=== PATIENT | male | born 1975 | race Caucasian/White ===

== ENCOUNTER 2017-10-26 18:01 | Observation (INO) | payer BC ==
[2017-10-26] MEDS ORDERED: ASPIRIN PO ONE (18:02)
[2017-10-26] MEDS ORDERED: ASPIRIN ONE (18:06)
[2017-10-26 18:14] VITALS: BMI 34.7
--- NOTE | 2017-10-26 18:18 | DR.GENAD ---
HPI - PCP Primary Care Physician: ERICKSON - HPI Comment HPI Comment: CHEST PAIN PRESSURE LIKE. MORE FREQUENT AND MORE INTENSE TODAY. - Complaint/Symptoms Chief Complaint Doctors Comments: LEFT SIDED CHEST PAIN RADIATING TO LEFT ARM SINCE LAST NIGHT/INTERMITTENT. Chief Complaint:: PT C/O LT SIDED CHEST PAIN THAT RADIATES TO LT SHOULDER AND DOWN LT ARM. PT STATES HIS PAIN STARTED LAST NIGHT AND HAS BEEN COMING AND GOING. - Nurses notes reviewed Nurses Notes Review: Yes - Source History Provided: Patient - Mode of Arrival Mode of Arrival: Ambulatory - Timing Onset of Chief Complaint: 10/25/17 Came on: Suddenly - Duration Duration: Intermittent Duration: Days - Severity Severity: Moderate PMH - PMH Past Medical History: Yes Past Medical History: Dyslipidemia, Hypertension Past Surgical History: Yes Surgical History: Abdominal Surgery, Ortho Surgery Past Surgical History Comment: BACK AND HERNIA REPAIR - Family History History of Family Medical Conditions: Yes Family Medical History: [place], Coronary Artery Disease, Heart Failure, Hypertension - Social History Does any household member use tobacco: No Alcohol Use: None Do you use any recreational Drugs:: No Lives With: Family Lives Where: Home - infectious screening In the last 2 months have you had wt loss of >10#?: NO Have you had fever, night sweats or hemotysis?: No Have you traveled outside the country in the last 6 months?: No Isolation: Standard ROS - Review of Systems Constitutional: No Symptoms Reported Eyes: No Symptoms Reported ENTM: No Symptoms Reported Respiratoy: No Symptoms Reported Cardiovascular: Chest Pain Gastrointestinal/Abdominal: No Symptoms Reported Genitourinary: No Symptoms Reported Neurological: No Symptoms Reported Musculoskeletal: No Symptoms Reported Integumentary: No Symptoms Reported Hematologic/Lymphatic: No Symptoms Reported Endocrine: No Symptoms Reported All Other Systems: Reviewed and Negative PE - Vital Signs Vitals: Temperature 98.0 F Pulse Rate [Right Radial] 74 Pulse Rate 70 Respiratory Rate 18 Blood Pressure [Right Arm] 166/87 Blood Pressure 162/83 O2 Sat by Pulse Oximetry 97 - General Limitations: No Limitations General Appearance: Alert - Head Head Exam: Normal Inspection - Eyes Eye exam: Normal Appearance - ENT ENT Exam: Normal External Ear Exam External Ear Exam: Normal External Inspection TM/Canal Exam: Bilateral Normal Nose Exam: Normal Nose Exam Mouth Exam: Normal Inspection Throat Exam: Normal Inspection - Neck Neck Exam: Normal Inspection - Chest Chest Inspection: Symmetric Chest Wall Rise - Respiratory Respiratory Exam: Normal Lung Sounds Bilat Respiratory Exam: Bilateral Clear to Auscultation - Cardiovascular Cardiovascular Exam: Regular Rate, Normal Rhythm, Normal Heart Sounds - Abdominal Exam Abdominal Exam: Normal Bowel Sounds, Soft. negative: Tenderness - Extremities Extremities Exam: Normal Inspection - Back Back Exam: Normal Inspection - Neurologic Neurological Exam: Alert, Oriented X3 - Psychiatric Psychiatric Exam: Normal Affect, Normal Mood - Skin Skin Exam: Normal Color MDM - Differential Diagnosis Differential Diagnosis: CHEST PAIN, HYPERTENSION Course - Treatment Treatment: SEE ORDERS. ASPRIN, NTG AND MORPHIN IN ED. - Consultation Consultation Comments: DISCUSS PATIENT WITH DR. SCHWAB. WILL ADMIT PATIENT. - Education/Counseling Education/Counseling: Patient, Family, Education Educated On: Treatment, Diagnosis ROR - Labs Reviewed Result Diagrams: 10/27/17 02:45 10/27/17 02:45 Laboratory: WBC 8.8 X10^3/uL (3.6-10.0) 10/26/17 18:13 RBC 5.41 X10^6/uL (4.7-6.0) 10/26/17 18:13 Hgb 14.6 g/dL (13.5-18.0) 10/26/17 18:13 Hct 43.1 % (42.0-54.0) 10/26/17 18:13 MCV 79.7 fL (80.0-100.0) L 10/26/17 18:13 MCH 27.0 pg (27.0-34.0) 10/26/17 18:13 MCHC 33.8 g/dL (33.0-35.0) 10/26/17 18:13 RDW 13.6 % (11.6-16.5) 10/26/17 18:13 Plt Count 199 X10^3/uL (150.0-450.0) 10/26/17 18:13 MPV 7.6 fL (7.4-11.0) 10/26/17 18:13 Neut % 63.8 % (42.0-75.0) 10/26/17 18:13 Lymph % 24.8 % (21.0-51.0) 10/26/17 18:13 Woodson % 6.9 % (0.0-13.0) 10/26/17 18:13 Eos % 3.8 % (0.9-2.9) H 10/26/17 18:13 Baso % 0.7 % (0.2-1.0) 10/26/17 18:13 Neut # 5.6 x10^3/uL (2.2-4.8) H 10/26/17 18:13 Lymph # 2.2 X10^3/uL (1.3-2.9) 10/26/17 18:13 Woodson # 0.6 x10^3/uL (0.3-0.8) 10/26/17 18:13 Eos # 0.3 x10^3/uL (0.0-0.2) H 10/26/17 18:13 Baso # 0.1 X10^3/uL (0.0-0.1) 10/26/17 18:13 Absolute Nucleated RBC 0.0 /100WBC 10/26/17 18:13 INR Target Range - 10/26/17 18:13 INR 0.97 (0.8-1.3) 10/26/17 18:13 PTT 29.7 SECONDS (22.9-36.5) 10/26/17 18:13 PTT Comment - 10/26/17 18:13 D-Dimer < 100 ng/mL (0-400) 10/26/17 18:13 Sodium 139 mmol/L (136-145) 10/26/17 18:13 Corrected Sodium 139 mmol/L (136-145) 10/26/17 18:13 Potassium 3.4 mmol/L (3.5-5.1) L 10/26/17 18:13 Chloride 103 mmol/L (98-107) 10/26/17 18:13 Carbon Dioxide 27.5 mmol/L (21-32) 10/26/17 18:13 BUN 15 mg/dL (7-18) 10/26/17 18:13 Creatinine 0.89 mg/dL (0.70-1.30) 10/26/17 18:13 Est GFR (MDRD) Af Amer > 60 (>60) 10/26/17 18:13 Est GFR (MDRD) Non-Af > 60 (>60) 10/26/17 18:13 Glucose 115 mg/dL (65-99) H 10/26/17 18:13 Calcium 8.4 mg/dL (8.5-10.1) L 10/26/17 18:13 Corrected Calcium TNP 10/26/17 18:13 Magnesium 2.2 mg/dL (1.7-2.9) 10/26/17 18:13 Total Bilirubin 0.30 mg/dL (0.2-1.0) 10/26/17 18:13 AST 28 Units/L (15-37) 10/26/17 18:13 ALT 41 Units/L (12-78) 10/26/17 18:13 Alkaline Phosphatase 79 Units/L (46-116) 10/26/17 18:13 Creatine Kinase 507 Units/L (39-308) H 10/26/17 18:13 CK-MB (CK-2) 8.2 ng/mL (0-4.0) H* 10/26/17 18:13 CK/CKMB % Calc 1.6 % (<4) 10/26/17 18:13 Troponin I < 0.02 ng/mL (0-1.5) 10/26/17 18:13 Total Protein 7.1 g/dL (6.4-8.2) 10/26/17 18:13 Albumin 4.2 g/dL (3.4-5.0) 10/26/17 18:13 Globulin 2.9 g/dL (2.5-4.5) 10/26/17 18:13 Albumin/Globulin Ratio 1.4 Ratio (1.1-2.1) 10/26/17 18:13 Amylase 33 Units/L (25-115) 10/26/17 18:13 Lipase 184 Units/L (73-393) 10/26/17 18:13 H. pylori IgG Antibody Negative (NEGATIVE) 10/26/17 18:16 - XRAY XRAY Findings: REPORT DISCUSS WITH PATIENT AND HIS . - EKG Rhythm: NSR (EKG NOTED.) - Diagnosis Discharge Problem: Chest pain Qualifiers: Chest pain type: unspecified Qualified Code(s): R07.9 - Chest pain, unspecified Hypertension Qualifiers: Hypertension type: unspecified Qualified Code(s): I10 - Essential (primary) hypertension - Discharge Plan Disposition: ADMITTED INPATIENT Condition: Stable - Follow ups/Referrals - Instructions
[2017-10-26] MEDS: NITROSTAT SL PRN ×3 (18:22→18:38)
[2017-10-26 18:28] LABS: BASOPHILS # (AUTO) 0.1 X10^3/uL (0.0-0.1); BASOPHILS % (AUTO) 0.7 % (0.2-1.0); EOSINOPHILS # (AUTO) 0.3 x10^3/uL (0.0-0.2); EOSINOPHILS % (AUTO) 3.8 % (0.9-2.9); HEMATOCRIT 43.1 % (42.0-54.0); HEMOGLOBIN 14.6 g/dL (13.5-18.0); LYMPHOCYTES # (AUTO) 2.2 X10^3/uL (1.3-2.9); LYMPHOCYTES % (AUTO) 24.8 % (21.0-51.0); MEAN CORPUSCULAR HGB CONC 33.8 g/dL (33.0-35.0); MEAN CORPUSCULAR VOLUME 79.7 fL (80.0-100.0); MEAN PLATELET VOLUME 7.6 fL (7.4-11.0); MONOCYTES # (AUTO) 0.6 x10^3/uL (0.3-0.8); MONOCYTES % (AUTO) 6.9 % (0.0-13.0); NEUTROPHILS # (AUTO) 5.6 x10^3/uL (2.2-4.8); NEUTROPHILS % (AUTO) 63.8 % (42.0-75.0); PLATELET COUNT 199 X10^3/uL (150.0-450.0); RED BLOOD COUNT 5.41 X10^6/uL (4.7-6.0); RED CELL DISTRIBUTION WIDTH 13.6 % (11.6-16.5); WHITE BLOOD COUNT 8.8 X10^3/uL (3.6-10.0)
[2017-10-26 18:41] LABS: AMYLASE 33 Units/L (25-115); LIPASE 184 Units/L (73-393)
[2017-10-26 18:42] LABS: BLOOD UREA NITROGEN 15 mg/dL (7-18); CALCIUM 8.4 mg/dL (8.5-10.1); CARBON DIOXIDE 27.5 mmol/L (21-32); CHLORIDE 103 mmol/L (98-107); COR NA(FOR HYPERGLY) 139 mmol/L (136-145); CREATININE 0.89 mg/dL (0.70-1.30); SODIUM 139 mmol/L (136-145); TROPONIN I < 0.02 ng/mL (0-1.5); eGFR BLACK RACES > 60 (>60); eGFR NON BLACK RACES > 60 (>60)
--- NOTE | 2017-10-26 18:46 | RAD ---
Examination: Portable AP chest History: Left side chest pain Findings: Normal appearance of heart, lungs and mediastinum and pleural spaces. Impression: Normal portable AP chest. Reported By:
[2017-10-26] MEDS ORDERED: ZOFRAN INJ 4 MG VIAL IVP ONE (18:59)
[2017-10-26] MEDS ORDERED: MORPHINE SULFATE INJ 4 MG IVP ONE (18:59)
[2017-10-26] MEDS ORDERED: ZOFRAN INJ 4 MG VIAL ONE (19:02)
[2017-10-26] MEDS ORDERED: MORPHINE SULFATE INJ 4 MG ONE (19:02)
[2017-10-26 19:05] LABS: ALANINE AMINOTRANSFERASE 41 Units/L (12-78); ALBUMIN 4.2 g/dL (3.4-5.0); ALKALINE PHOSPHATASE 79 Units/L (46-116); ASPARTATE AMINO TRANSFERASE 28 Units/L (15-37); CKMB % 1.6 % (<4); CREATINE KINASE 507 Units/L (39-308); MAGNESIUM 2.2 mg/dL (1.7-2.9); TOTAL PROTEIN 7.1 g/dL (6.4-8.2)
[2017-10-26 19:12] LABS: CREATINE KINASE MB 8.2 ng/mL (0-4.0)
[2017-10-26] MEDS ORDERED: K-LYTE EFFERVESCENT PO ONE (19:48)
[2017-10-26] MEDS ORDERED: MORPHINE SULFATE INJ 4 MG IVP PRN (20:38)
[2017-10-26] MEDS ORDERED: ATIVAN TAB 1 MG PO PRN (20:38)
[2017-10-26] MEDS ORDERED: ZOFRAN INJ 4 MG VIAL IVP PRN (20:38)
[2017-10-26] MEDS ORDERED: K-LYTE EFFERVESCENT ONE (20:45)
[2017-10-26 21:37] LABS: CKMB % 1.5 % (<4); CREATINE KINASE 453 Units/L (39-308); TROPONIN I < 0.02 ng/mL (0-1.5)
[2017-10-26 21:42] LABS: CREATINE KINASE MB 6.8 ng/mL (0-4.0)
[2017-10-26] MEDS ORDERED: NS 1000 ML 1,000 ML ONE (21:53)
[2017-10-26] MEDS: NS 1000 ML 1,000 ML IV SCH (21:56)
[2017-10-27 03:00] LABS: BASOPHILS # (AUTO) 0.1 X10^3/uL (0.0-0.1); BASOPHILS % (AUTO) 0.7 % (0.2-1.0); EOSINOPHILS # (AUTO) 0.3 x10^3/uL (0.0-0.2); EOSINOPHILS % (AUTO) 4.4 % (0.9-2.9); HEMATOCRIT 42.5 % (42.0-54.0); HEMOGLOBIN 14.6 g/dL (13.5-18.0); LYMPHOCYTES # (AUTO) 2.3 X10^3/uL (1.3-2.9); LYMPHOCYTES % (AUTO) 28.1 % (21.0-51.0); MEAN CORPUSCULAR HEMOGLOBIN 27.1 pg (27.0-34.0); MEAN CORPUSCULAR HGB CONC 34.4 g/dL (33.0-35.0); MEAN CORPUSCULAR VOLUME 78.9 fL (80.0-100.0); MEAN PLATELET VOLUME 7.6 fL (7.4-11.0); MONOCYTES # (AUTO) 0.8 x10^3/uL (0.3-0.8); MONOCYTES % (AUTO) 9.6 % (0.0-13.0); NEUTROPHILS # (AUTO) 4.6 x10^3/uL (2.2-4.8); NEUTROPHILS % (AUTO) 57.2 % (42.0-75.0); PLATELET COUNT 179 X10^3/uL (150.0-450.0); RED BLOOD COUNT 5.39 X10^6/uL (4.7-6.0); RED CELL DISTRIBUTION WIDTH 13.7 % (11.6-16.5)
[2017-10-27 03:16] LABS: ALANINE AMINOTRANSFERASE 40 Units/L (12-78); ALBUMIN 3.7 g/dL (3.4-5.0); ALKALINE PHOSPHATASE 68 Units/L (46-116); ASPARTATE AMINO TRANSFERASE 23 Units/L (15-37); BLOOD UREA NITROGEN 13 mg/dL (7-18); CARBON DIOXIDE 28.5 mmol/L (21-32); CHLORIDE 104 mmol/L (98-107); CHOL/HDL RATIO 5.9 (0.0-5.0); CHOLESTEROL 177 mg/dL (0-200); CREATININE 0.87 mg/dL (0.70-1.30); HDL CHOLESTEROL 30 mg/dL (40-60); MAGNESIUM 2.1 mg/dL (1.7-2.9); SODIUM 141 mmol/L (136-145); TOTAL PROTEIN 6.8 g/dL (6.4-8.2); TRIGLYCERIDES 138 mg/dL (0-150); eGFR BLACK RACES > 60 (>60); eGFR NON BLACK RACES > 60 (>60)
[2017-10-27 03:50] LABS: CKMB % 1.6 % (<4); CREATINE KINASE 338 Units/L (39-308); TROPONIN I < 0.02 ng/mL (0-1.5)
[2017-10-27 03:53] LABS: CREATINE KINASE MB 5.5 ng/mL (0-4.0)
[2017-10-27 09:16] LABS: CKMB % 1.6 % (<4); CREATINE KINASE 279 Units/L (39-308); TROPONIN I < 0.02 ng/mL (0-1.5)
[2017-10-27 09:22] LABS: CREATINE KINASE MB 4.4 ng/mL (0-4.0)
[2017-10-27 12:42] LABS: BILIRUBIN,URINE NEGATIVE (NEGATIVE); BLOOD/HEMOGLOBIN,URINE NEGATIVE (NEGATIVE); GLUCOSE, URINE NEGATIVE (NEGATIVE); KETONES,URINE NEGATIVE (NEGATIVE); LEUKOCYTE ESTERASE ,URINE NEGATIVE (NEGATIVE); NITRITES,URINE NEGATIVE (NEGATIVE); PROTEIN,URINE NEGATIVE (NEGATIVE); UROBILINOGEN,URINE NORMAL (NORMAL)
[2017-10-27 12:48] LABS: APPEARANCE,URINE CLEAR (CLEAR); BACTERIA,URINE NEGATIVE /HPF (NEGATIVE); COLOR,URINE YELLOW (YELLOW); RBC,URINE 0-2 /HPF (NEGATIVE); SQUAMOUS EPITHELIAL CELL,UR NEGATIVE /HPF (NEGATIVE)
[2017-10-27] MEDS: NS 1000 ML 1,000 ML IV SCH (13:26)
[2017-10-27 13:27] VITALS: BP 127/72
[2017-10-27] MEDS ORDERED: PREVNAR 13 IM ONE (14:37)
== END 2017-10-27 15:40 | disposition home or self-care (01) ==
LOC: ER 18:04 → MED/SURG 20:28
PROVIDERS: ADMIT Obstetrics & Gynecology Obstetrics; ATTEND Internal Medicine
DX: R07.89 Other chest pain (principal); I10 Essential (primary) hypertension; E78.2 Mixed hyperlipidemia; R94.31 Abnormal electrocardiogram [ECG] [EKG]; R73.09 Other abnormal glucose
CPT/HCPCS: 36415; 71010; 80053; 80061; 81001; 82150; 82550; 82553; 83690; 83735; 84484; 85025; 85378; 85610; 85730; 86677; 93005; 93010; 94760; 96365; 96374; 96375; 99284; A4222; 90670; G0378; J2270; J2405